=== PATIENT | female | born 1950 ===

== ENCOUNTER 2020-08-30 10:30 | Inpatient (IN) | payer OTHER ==
[~2020-08-30] VITALS: Ht 147.3 cm; Wt 69.4 kg
[~2020-08-30 10:30] MED LIST: LEXAPRO20 MG PO; NABUMETONE500 MG PO; PERCOCET 5-3251 EACH PO; SYNTHROID100 MCG PO; TOPROL XL25 M1 PO
[2020-08-30] MEDS ORDERED: LIPITOR20 MG PO (15:11)
== END 2020-09-08 18:51 | DRG 470 ==
LOC: SURH 09-06 06:44 → O/R 09-06 06:44 → SURH 09-06 10:30
PROVIDERS: ADMIT Orthopaedic Surgery; ATTEND Orthopaedic Surgery
PROC: 0SRD0J9 Replacement of Left Knee Joint with Synthetic Substitute, Cemented, Open Approach (ICD-10-PCS; principal; 2020-09-06 13:30)
DX: M17.12 Unilateral primary osteoarthritis, left knee (principal); D62 Acute posthemorrhagic anemia